=== PATIENT | female | born 1990 | race Caucasian/White ===

== ENCOUNTER 2018-02-23 17:50 | Emergency (ER) | payer OTHER ==
--- NOTE | 2018-02-23 20:02 | XRAY Report ---
Reason: cough Procedure Date: 02/23/2018 Accession Number: [id number] / [id number] Procedure: XR - Chest 2 View X-Ray CPT Code: 31356 FULL RESULT: EXAM: CHEST RADIOGRAPHY EXAM DATE: 02/23/2018 07:21 PM. CLINICAL HISTORY: Cough. COMPARISON: None available. TECHNIQUE: 2 views. FINDINGS: Heart size is normal. No consolidation, pleural effusion, or pneumothorax. IMPRESSION: Normal 2-view chest radiography. RADIA
[2018-02-23] MEDS ORDERED: IPRATROPIUM/ALBUTEROL 3 ML NEB INH STA (20:11)
[2018-02-23] MEDS ORDERED: BENZONATATE 100 MG CAPSULE PO STA (20:11)
[2018-02-23] MEDS ORDERED: DEXAMETHASONE 10 MG/ML VIAL PO STA (20:11)
[2018-02-23] MEDS ORDERED: CHERRY SYRUP 10 ML UDC PO ONE (20:19)
--- NOTE | 2018-02-23 21:06 | ED Physician Documentation ---
History of Present Illness - Stated complaint Stated Complaint: COUGH, FLEGM/SORE THROAT - Chief complaint Chief Complaint: Heent - Additonal information Additional information: 27-year-old female presents the emergency department with nasal congestion, cough and wheezing for the past several weeks. The patient has a history of asthma. No specific triggering factors. No fevers or chills or productive cough. The patient gets improvement with her albuterol. Symptoms are described as moderate. No other associated symptoms. Review of Systems Constitutional: denies: Fever, Chills Eyes: denies: Loss of vision Ears: denies: Ear pain Nose: denies: Congestion Throat: denies: Sore throat Cardiac: denies: Chest pain / pressure Respiratory: reports: Cough, Wheezing GI: denies: Constipation : denies: Dysuria Skin: denies: Rash Musculoskeletal: denies: Neck pain Immunocompromised: denies: Chemotherapy PD PAST MEDICAL HISTORY - Past Medical History Past Medical History: Yes Cardiovascular: Other Respiratory: Asthma Other Past Medical History: DVT - Past Surgical History Past Surgical History: Yes - Present Medications Home Medications: Ambulatory Orders Medication Instructions Recorded Confirmed Benzonatate [Tessalon Perle] 100 mg PO TID PRN #30 capsule 02/23/18 Pseudoephedrine HCl [Sudafed 12 120 mg PO BID PRN #30 tablet.er 02/23/18 Hour] - Allergies Allergies/Adverse Reactions: Allergies Allergy/AdvReac Type Severity Reaction Status Date / Time tramadol Allergy Rash Verified 02/23/18 17:56 - Social History Does the pt smoke?: No Smoking Status: Never smoker Does the pt drink ETOH?: No Does the pt have substance abuse?: No PD ED PE NORMAL - General General: Alert and oriented X 3, No acute distress - HEENT HEENT: Atraumatic, PERRL, EOMI, Ears normal - Neck Neck: Supple, no meningeal sign - Cardiac Cardiac: RRR, Strong equal pulses - Respiratory Respiratory: No respiratory distress, Other (Bronchospasms with coughing) - Derm Derm: Normal color - Extremities Extremities: No deformity, No edema - Neuro Neuro: Alert and oriented X 3, Normal speech - Psych Psych: Normal mood Results - Vitals Vitals: Vital Signs - 24 hr 02/23/18 17:55 Temperature 36.6 C Heart Rate 111 H Respiratory 18 Rate Blood Pressure 123/79 O2 Saturation 97 Oxygen O2 Source Room air - Rads (name of study) CXR Radiology: Final report received, See rad report PD MEDICAL DECISION MAKING - ED course ED course: On reevaluation the patient appears much improved. There is no findings that would suggest a bacterial etiology and the patient appears appropriate for outpatient management. I discussed warning signs and recommended returning to the emergency department immediately for any worsening or any concerns. Departure - Departure Disposition: 01 Home, Self Care Clinical Impression: Bronchitis Condition: Good Instructions: ED Bronchitis Asthmatic Follow-Up: MAGGIE HOLLIS [Primary Care Provider] - Within 1 week Prescriptions: Benzonatate [Tessalon Perle] 100 mg PO TID PRN #30 capsule PRN Reason: Cough Pseudoephedrine HCl [Sudafed 12 Hour] 120 mg PO BID PRN #30 tablet.er PRN Reason: Cold Symptons Comments: Please return to the emergency department for worsening symptoms or any concerns
[2018-02-23 21:11] VITALS: BP 125/68
== END 2018-02-23 21:11 | disposition home or self-care (01) ==
LOC: ED 17:50
DX: J40 Bronchitis, not specified as acute or chronic (principal)
CPT/HCPCS: 71046; 94640; 99283; A9270

== ENCOUNTER 2018-04-28 12:58 | Day surgery (SDC) | payer OTHER ==
[2018-04-28] MEDS ORDERED: LACTATED RINGERS 1,000 ML IV ONE ×2 (13:15→16:11)
[2018-04-28 13:18] LABS: HCG UR QUAL NEGATIVE
--- NOTE | 2018-04-28 13:43 | ANESTHESIA ---
Pre-Anesthesia VS, & Labs - Diagnosis desires sterilization - Procedure laparoscopic salphingectomy, bilateral Vital Signs: Temp Pulse Resp BP Pulse Ox 37 C 98 16 122/74 96 04/28/18 13:37 04/28/18 13:37 04/28/18 13:37 04/28/18 13:37 04/28/18 13:37 Height 5 ft 5 in Weight (kg) 77 kg Body Mass Index 29.1 - NPO >8 hours - Is Patient ?: No (negative HCG) Home Medications and Allergies Home Medications: Ambulatory Orders No Known Home Medications 04/07/18 No Known Home Medications 04/07/18 Allergies/Adverse Reactions: Allergies Allergy/AdvReac Type Severity Reaction Status Date / Time tramadol Allergy Rash Verified 04/07/18 09:01 Anes History & Medical History - Anesthetic History Anesthesia Complications: reports: No previous complications - Medical History Cardiovascular: reports: Deep vein thrombosis Pulmonary: reports: Asthma (occasional inhaler use) Gastrointestinal: reports: None Urinary: reports: Other Musculoskeletal: reports: None Endocrine/Autoimmune: reports: None Skin: reports: None Smoking Status: Former smoker (smokeless only, quit) - Surgical History Cardiothoracic: Other Exam General: Alert Dental: Poor dentition (right front incisor missing) Mouth Opening: Greater than 4 Fingerbreadths Mallampati classification: II Thyromental Distance: greater than 6 cm Respiratory: Lungs clear Cardiovascular: Regular rate Mental/Cognitive Status: Alert/Oriented X3 Plan Anesthesia Type: General Consent for Procedure(s) Verified and Reviewed: Yes Code Status: Attempt Resuscitation ASA classification: 2-Mild systemic disease Is this case an emergency?: No
[2018-04-28] MEDS ORDERED: BUPIVACAINE 0.5%-EPI 1:200000 PF 30 ML VIAL ONE (14:57)
[2018-04-28] MEDS ORDERED: BUPIVACAINE 0.5%-EPI 1:200000 PF 30 ML VIAL SUBQ ONE ×2 (15:51)
[2018-04-28] MEDS ORDERED: HYDROcod/ACETAM 10 MG/325 MG TABLET PO PRN (16:28)
--- NOTE | 2018-04-28 16:31 | OPERATIVE REPORT ---
Operative Report - General Procedure Date: 04/28/18 Planned Procedure: Laparoscopic bilateral salpingectomy Pre-Op Diagnosis: Undesired fertility Procedure Performed: Laparoscopic bilateral salpingectomy Fulguration of endometriosis Post Op Diagnosis: Same as above - Procedure Note Primary Surgeon: Rosita Secondary Surgeon: Chavo Anesthesia Provider: Anival Anesthesia Technique: General ET tube Pathology: Portions of both fallopian tubes Estimated Blood Loss (mL): 25 - Other Other Information/Narrative: Examination under anesthesia: The uterus was of normal size shape and consistency and retroverted. There were no adnexal masses. Operative findings: The uterus was retroverted and of normal size and shape. Both tubes and ovaries appeared normal. There were endometriotic implants of the left uterosacral ligament, the lower segment of the uterus posteriorly in the midline, both ovarian fossae. The appendix, and the liver edge and gallbladder appeared normal. The omentum was adherent to the anterior abdominal wall in the right lower quadrant lateral to the right lower quadrant trocar site. Procedure: The patient was taken to the operating room, where general endotracheal anesthesia was administered without difficulty. She was then positioned in the low dorsal lithotomy position with her lower extremities in [place] stirrups. Vagina, perineum, and abdomen were then prepped and draped in a sterile fashion. Procedure Time-Out was then performed. A sterile bivalve speculum was then inserted into the vagina. A tenaculum was placed at the anterior lip of the cervix, and a HUMI uterine manipulator was gently advanced and the balloon inflated. The tenaculum and speculum were then removed from the vagina. Attention was then turned to the laparoscopy. 0.5% Marcaine was injected in fraumbilically, then a 7-mm horizontal skin incision made. A Verrees needle was then inserted through the anterior layers of the abdominal wall with saline drop test suggesting intraperitoneal placement. Carbon dioxide gas insufflation was then performed with appropriate opening pressures noted. Once 2 L of gas was instilled, a 0-degree, 5 mm laparoscope was inserted into a 5 mm trocar and pass ed through the anterior layers of the abdominal wall using Optiview technique. The abdomen was visualized, then 2 additional ports placed at the right and left lower quadrants, first instilling local anesthetic, then placing 5 mm ports. The patient was placed into Trendelenberg and bowel swept out of the cul-de-sac. The right, distal fallopian tube was then grasped and pulled anteriorly and s uperiorly. The tubo-ovarian ligament was then crossclamped, cauterized, and cut using the PlasmaKinetic, then the mesosalpinx was crossclamped, cauterized, and cut, completely the right fallopian tube from the uterus at the cornual region. The right fallopian tube was then removed from the abdomen. The left distal fallopian tube including the paratubal cyst was then grasped and pulled anteriorly and superiorly. The tubo-ovarian pedicle was then crossclamped, cauterized, and cut, the distal left fallopian tube from the left ovary. The mesosalpinx was then serially cauterized and cut until the cornual region was reached, then the cornual fallopian tube was crossclamped cauterized and cut. The surgical sites appeared hemostatic. The left fallopian tube was removed from the abdomen. Endometriotic implants in the posterior cul-de-sac and right and left ovarian fossae were fulgurated. At this point the laparoscopy was deemed complete, and all trochars were removed from the abdomen. The carbon dioxide gas was then allowed to escape. The incisions were then closed with 4-0 Monocryl in a subcuticular fashion followed by Dermabond skin adhesive. The tenaculum was then removed from the posterior lip of the cervix. The sterile bivalve speculum was then reinserted to ensure that the tenaculum sites were hemostatic. No bleeding was noted, and the speculum was then removed. At this point the procedure was deemed complete. The patient was then replaced supine, awakened, extubated, and transferred to the PACU in stable condition.
[2018-04-28] MEDS ORDERED: ONDANSETRON 4 MG/2 ML VIAL ONE (16:33)
[2018-04-28] MEDS ORDERED: HYDROmorphone 0.5 MG/0.5 ML SYRINGE ONE (16:38)
[2018-04-28 17:40] VITALS: BP 118/76
== END 2018-04-28 12:59 | disposition home or self-care (01) ==
LOC: SDS 12:58
PROVIDERS: ATTEND Obstetrics & Gynecology
PROC: 0UT74ZZ Resection of Bilateral Fallopian Tubes, Percutaneous Endoscopic Approach (ICD-10-PCS; principal; 2018-04-28 14:00)
DX: Z30.2 Encounter for sterilization (principal); J45.909 Unspecified asthma, uncomplicated; Z86.718 Personal history of other venous thrombosis and embolism; Z87.891 Personal history of nicotine dependence
CPT/HCPCS: 58661; 81025; J1170; J7120

== ENCOUNTER 2018-09-25 13:27 | Emergency (ER) | payer OTHER ==
[2018-09-25 13:33] VITALS: BP 137/100
[2018-09-25] MEDS ORDERED: HYDROcod/ACETAM 5/325 MG TABLET PO STA (13:39)
--- NOTE | 2018-09-25 13:42 | ED Physician Documentation ---
History of Present Illness - Stated complaint Stated Complaint: TAILBONE PX - Chief complaint Chief Complaint: General - History obtained from History obtained from: Patient - History of Present Illness Timing: Other (Fell down a few stairs at home few days ago landing on her tailbone. Also hurt her right second toe. No other injuries. Pain is moderate despite taking ibuprofen. No possibility of .) Review of Systems Cardiac: denies: Chest pain / pressure, Palpitations Respiratory: denies: Dyspnea, Cough GI: denies: Abdominal Pain, Vomiting, Diarrhea PD PAST MEDICAL HISTORY - Past Medical History Cardiovascular: Deep vein thrombosis Respiratory: Asthma (occasional inhaler use) Endocrine/Autoimmune: None GI: None : Other HEENT: None Psych: Anxiety Musculoskeletal: None Derm: None - Past Surgical History Past Surgical History: Yes Cardiovascular: Other - Present Medications Home Medications: Ambulatory Orders Medication Instructions Recorded Confirmed Hydrocodone/Acetaminophen 1 - 2 each PO Q6H PRN #14 tablet 09/25/18 [Hydrocodon-Acetaminophen 5-325] - Allergies Allergies/Adverse Reactions: Allergies Allergy/AdvReac Type Severity Reaction Status Date / Time tramadol Allergy Rash Verified 04/07/18 09:01 - Social History Does the pt smoke?: No Smoking Status: Former smoker (smokeless only, quit) Does the pt drink ETOH?: No Does the pt have substance abuse?: No PD ED PE NORMAL - Vitals Vital signs reviewed: Yes - General General: Alert and oriented X 3, No acute distress - Neck Neck: Supple, no meningeal sign, No bony TTP - Back Back: Other (Tender over the low sacrum/coccyx, no tenderness or deformity at the SI joints. 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, Normal speech - Psych Psych: Normal mood, Normal affect Results - Vitals Vitals: Vital Signs - 24 hr 09/25/18 13:31 Temperature 36.4 C L Heart Rate 79 Respiratory 18 Rate Blood Pressure 137/100 H O2 Saturation 99 Oxygen O2 Source Room air - Rads (name of study) XR R 2nd toe and sacrum Radiology: EMP read contemporaneously (Lower sacral nondisplaced fracture and distal phalanx dorsal chip fracture of the second toe.) Departure - Departure Disposition: Home, Self Care Clinical Impression: Sacral fracture Qualifiers: Encounter type: initial encounter Zone of sacrum fracture: unspecified portion of sacrum Fracture type: closed Qualified Code(s): S32.10XA - Unspecified fracture of sacrum, initial encounter for closed fracture Toe fracture, right Qualifiers: Encounter type: initial encounter Toe: lesser toe Fracture type: closed Phalanx: distal Fracture alignment: nondisplaced Qualified Code(s): S92.534A - Nondisplaced fracture of distal phalanx of right lesser toe(s), initial encounter for closed fracture Condition: Good Record reviewed to determine appropriate education?: Yes Health Concerns: toe/back injury Plan of Treatment: pain meds, rest, donut pillow Care Goals: pain control Assessment: as above Instructions: ED Fx Coccyx, ED Fx Toe Closed Prescriptions: Hydrocodone/Acetaminophen [Hydrocodon-Acetaminophen 5-325] 1 - 2 each PO Q6H PRN #14 tablet PRN Reason: pain Comments: Camilo tape the toes as shown as needed. Donut pillow which he can get [id number]. Return if worse. Do not drink or drive while taking narcotic pain medication. Note that many narcotic pain relievers also contain Tylenol/acetaminophen. Please ensure that your total dose of acetaminophen from all sources does not exceed 3 g (3000 mg) per day. You may get constipated while on this medication. Take a stool softener such as Colace twice a day while you are on it. Also add an [id number] laxative such as senna or MiraLAX on any day that you do not have a bowel movement. If you received a narcotic pain medication or sedative while in the emergency department, do not drive for the next 24 hours.
--- NOTE | 2018-09-25 15:00 | XRAY Report ---
Reason: fall, back pain Procedure Date: 09/25/2018 Accession Number: [id number] / [id number] Procedure: XR - Sacrum/Coccyx CPT Code: FULL RESULT: EXAM: SACRUM AND COCCYX RADIOGRAPHY EXAM DATE: 09/25/2018 02:10 PM. HISTORY: Fall, back pain. COMPARISONS: None. TECHNIQUE: 2 views. FINDINGS: Alignment: Normal alignment. No dislocation. Bones: Oblique lucency on the lateral view is seen in the lower sacrum by the sacrococcygeal junction. No displacement. Joints: Normal. The sacroiliac joints and visualized hips are within normal limits. Soft Tissues: Vascular stent is noted. IMPRESSION: 1. Oblique lucency in the lower sacrum seen best on the lateral view may represent a nondisplaced fracture. No displacement or angulation. RAD[facility]
--- NOTE | 2018-09-25 15:18 | XRAY Report ---
Reason: fall toe pain Procedure Date: 09/25/2018 Accession Number: [id number] / [id number] Procedure: XR - Toe(s) RT CPT Code: FULL RESULT: EXAM: RIGHT SECOND TOE RADIOGRAPHY EXAM DATE: 09/25/2018 02:00 PM. CLINICAL HISTORY: Fall toe pain. COMPARISON: None. TECHNIQUE: 3 views. FINDINGS: Bones: On the lateral image, there is a lucency seen through the dorsal distal phalanx which could represent a nondisplaced fracture line versus other overlapping structures. Joints: Normal. No subluxations. Soft Tissues: No foreign body. IMPRESSION: 1. Possible hairline nondisplaced fracture of the dorsal distal phalanx at the DIP joint on the lateral image only. Not clearly seen on other images. Artifact is not excluded. RAD[facility]
== END 2018-09-25 15:32 | disposition home or self-care (01) ==
LOC: ED 13:27
DX: S32.10XA Unspecified fracture of sacrum, initial encounter for closed fracture (principal); S92.534A Nondisplaced fracture of distal phalanx of right lesser toe(s), initial encounter for closed fracture; W10.9XXA Fall (on) (from) unspecified stairs and steps, initial encounter; Y92.009 Unspecified place in unspecified non-institutional (private) residence as the place of occurrence of the external cause; Z86.718 Personal history of other venous thrombosis and embolism; Z87.891 Personal history of nicotine dependence
CPT/HCPCS: 72220; 73660; 99283; 99284; A9270

== ENCOUNTER 2021-04-03 13:39 | Emergency (ER) | payer OTHER ==
[2021-04-03 14:25] LABS: ALBUMIN 4.4 g/dL (3.2-5.5); ALBUMIN/GLOBULIN RATIO 1.1 (1.0-2.2); CREATININE 0.8 mg/dL (0.4-1.0); POTASSIUM 3.5 mmol/L (3.5-5.0); TOTAL PROTEIN 8.3 g/dL (6.7-8.2)
[2021-04-03 14:29] LABS: BASOPHILS # (AUTO) 0.1 10^3/uL (0.0-0.1); BASOPHILS % (AUTO) 0.5 %; EOSINOPHILS # (AUTO) 0.2 10^3/uL (0.0-0.7); EOSINOPHILS % (AUTO) 2.5 %; HGB - HEMOGLOBIN 13.1 g/dL (12.0-16.0); LYMPHOCYTES # (AUTO) 2.6 10^3/uL (1.5-3.5); MEAN CORPUSCULAR HEMOGLOBIN 28.5 pg (27.0-31.0); MEAN CORPUSCULAR VOLUME 89.3 fL (81.0-99.0); MEAN PLATELET VOLUME 10.5 fL (7.9-10.8); MONOCYTES % (AUTO) 10.9 %; NEUTROPHILS # (AUTO) 5.4 10^3/uL (1.5-6.6); NEUTROPHILS % (AUTO) 57.8 %; PLT - PLATELET COUNT 244 10^3/uL (130-450); RED BLOOD COUNT 4.59 10^6/uL (4.20-5.40); RED CELL DISTRIBUTION WIDTH 12.3 % (12.0-15.0); WHITE BLOOD COUNT 9.4 x10^3/uL (4.8-10.8)
[2021-04-03] MEDS ORDERED: SODIUM CHLORIDE 0.9% 1,000 ML IV STA (14:30)
--- NOTE | 2021-04-03 14:36 | ED Physician Documentation ---
History of Present Illness - Stated complaint Stated Complaint: LT LOWER BACK PX - Chief complaint Chief Complaint: Abd Pain - Additonal information Additional information: 30-year-old female presents emergency department for evaluation of 2 days left low back and flank pain. Pain is constant nonradiating. No fevers nausea or vomiting. No dysuria urgency or frequency. She does have a history of kidney stones however these have always been asymptomatic. She was previously taking Flomax but stopped taking it because it was making her nauseated. She stopped taking it about 3 days ago. She also reports a history of stenting in either her iliac artery or vein she is unsure. She had developed a blood clot after using OCP. She is not anticoagulated. Takes no prescribed medications otherwise. Review of Systems Constitutional: reports: Reviewed and negative Nose: reports: Reviewed and negative Throat: reports: Reviewed and negative Cardiac: reports: Reviewed and negative Respiratory: reports: Reviewed and negative GI: reports: Abdominal Pain. denies: Nausea, Vomiting : denies: Dysuria, Frequency, Hesitancy Skin: reports: Reviewed and negative Musculoskeletal: reports: Reviewed and negative PD PAST MEDICAL HISTORY - Past Medical History Cardiovascular: Deep vein thrombosis Respiratory: Asthma (occasional inhaler use) Endocrine/Autoimmune: None GI: None : Other HEENT: None Psych: Anxiety Musculoskeletal: None Derm: None - Past Surgical History Past Surgical History: Yes /RECRUITING MANAGER: Oophrectomy Cardiovascular: Other - Present Medications Home Medications: Ambulatory Orders Medication Instructions Recorded Confirmed Hydrocodone/Acetaminophen 1 - 2 each PO Q6H PRN #14 tablet 09/25/18 [Hydrocodon-Acetaminophen 5-325] Cefpodoxime Proxetil [Vantin] 100 mg PO Q12H #14 tablet 04/03/21 - Allergies Allergies/Adverse Reactions: Allergies Allergy/AdvReac Type Severity Reaction Status Date / Time tramadol Allergy Rash Verified 04/03/21 13:57 - Social History Does the pt smoke?: No Smoking Status: Former smoker (smokeless only, quit) Does the pt drink ETOH?: No Does the pt have substance abuse?: No PD ED PE NORMAL - General General: Alert and oriented X 3, No acute distress - Neck Neck: Supple, no meningeal sign, No adenopathy - Cardiac Cardiac: RRR, No murmur - Respiratory Respiratory: No respiratory distress, Clear bilaterally - Abdomen Abdomen: Normal bowel sounds, Soft. No: Non tender (Tenderness in the left CVA and left flank. No guarding or rebound. No right-sided abdominal tenderness elicited.) - Back Back: No: No CVA TTP (Left CVA) - Derm Derm: Warm and dry - Extremities Extremities: No deformity - Neuro Neuro: Alert and oriented X 3 Eye Opening: Spontaneous Motor: Obeys Commands Verbal: Oriented GCS Score: 15 - Psych Psych: Normal mood Results - Vitals Vitals: Vital Signs - 24 hr 04/03/21 04/03/21 13:51 14:59 Temperature 36.6 C 37.2 C Heart Rate 108 H 94 Respiratory 16 18 Rate Blood Pressure 113/71 115/66 O2 Saturation 100 100 Oxygen O2 Source Room air - Labs Labs: Laboratory Tests 04/03/21 04/03/21 04/03/21 14:04 14:04 14:09 WBC 9.4 RBC 4.59 Hgb 13.1 Hct 41.0 MCV 89.3 MCH 28.5 MCHC 32.0 RDW 12.3 Plt Count 244 MPV 10.5 Neut # (Auto) 5.4 Lymph # (Auto) 2.6 [place] # (Auto) 1.0 Eos # (Auto) 0.2 Baso # (Auto) 0.1 Absolute Nucleated RBC 0.00 Nucleated RBC % 0.0 Sodium Potassium Chloride Carbon Dioxide Anion Gap BUN Creatinine Estimated GFR (MDRD) Glucose Calcium Total Bilirubin AST ALT Alkaline Phosphatase Total Protein Albumin Globulin Albumin/Globulin Ratio Lipase Urine Color YELLOW Urine Clarity SL. CLOUDY Urine pH 6.0 Ur Specific [place] 1.020 Urine Protein TRACE Urine Glucose (UA) NEGATIVE Urine Ketones NEGATIVE Urine Occult Blood SMALL H Urine Nitrite POSITIVE H Urine Bilirubin NEGATIVE Urine Urobilinogen 0.2 (NORMAL) Ur Leukocyte Esterase SMALL H Urine RBC 11-25 H Urine WBC 11-25 H Urine WBC Clumps PRESENT Ur Squamous Epith Cells RARE Squamous Urine Bacteria Many H Ur Microscopic Review INDICATED Urine Culture Comments INDICATED Urine HCG, Qual NEGATIVE 04/03/21 14:09 WBC RBC Hgb Hct MCV MCH MCHC RDW Plt Count MPV Neut # (Auto) Lymph # (Auto) [place] # (Auto) Eos # (Auto) Baso # (Auto) Absolute Nucleated RBC Nucleated RBC % Sodium 138 Potassium 3.5 Chloride 101 Carbon Dioxide 27 Anion Gap 10.0 BUN 13 Creatinine 0.8 Estimated GFR (MDRD) 84 L Glucose 94 Calcium 9.0 Total Bilirubin 1.0 AST 21 ALT 33 Alkaline Phosphatase 68 Total Protein 8.3 H Albumin 4.4 Globulin 3.9 Albumin/Globulin Ratio 1.1 Lipase 45 Urine Color Urine Clarity Urine pH Ur Specific [place] Urine Protein Urine Glucose (UA) Urine Ketones Urine Occult Blood Urine Nitrite Urine Bilirubin Urine Urobilinogen Ur Leukocyte Esterase Urine RBC Urine WBC Urine WBC Clumps Ur Squamous Epith Cells Urine Bacteria Ur Microscopic Review Urine Culture Comments Urine HCG, Qual - Rads (name of study) CT abd Radiology: Final report received (Visualized renal or ureteral calculi. No obstruction. No acute intra-abdominal or pelvic process) PD MEDICAL DECISION MAKING - ED course Complexity details: reviewed results, re-evaluated patient ED course: 30-year-old female presents emergency department for evaluation of 2 days acute left low back pain with radiation to the flank. No fevers nausea or vomiting. She does endorse a history of renal colic in the past. Screening labs that showed no worrisome findings with the exception of a frankly infected urine. Patient was given a gram of ceftriaxone here in the emergency department. Given the history of previous renal colic a CT scan was completed to rule out infected stone. No acute process was identified and there were no findings of stones. Patient will be discharged with a prescription for Vantin twice daily for the next week. Clinically patient does not present as septic and has no findings to suggest a sending infection though there is some mild flank pain. Emergent return precautions were discussed for failure of symptoms to resolve. Departure - Departure Disposition: 01 Home, Self Care Clinical Impression: Acute cystitis Qualifiers: Hematuria presence: with hematuria Qualified Code(s): N30.01 - Acute cystitis with hematuria Condition: Stable Record reviewed to determine appropriate education?: Yes Instructions: ED UTI Cystitis Female Prescriptions: Cefpodoxime Proxetil [Vantin] 100 mg PO Q12H #14 tablet Comments: June you are seen in the emergency department today for left-sided low back and flank pain. Your screening labs were all essentially normal however you do have a urinary tract infection. Please fill the prescription for the Vantin which has been sent to the [facility]. The CT scan did not show findings of infection around your kidney nor did it find any infected or retained kidney stones. With the antibiotics I would expect reduced pain in your low back over the next 24 to 48 hours. In general I recommend that you take Tylenol or ibuprofen [id number] for discomfort. If despite the antibiotics your symptoms are not improving then please return immediately to the ER for a second evaluation.
[2021-04-03] MEDS ORDERED: iohexoL-300 100 ML VIAL ONE (14:45)
[2021-04-03 14:49] LABS: BILIRUBIN,URINE NEGATIVE (NEGATIVE); GLUCOSE, URINE (UA) NEGATIVE (NEGATIVE); KETONES,URINE (UA) NEGATIVE (NEGATIVE); LEUKOCYTE ESTERASE, URINE SMALL (NEGATIVE); NITRITE,URINE POSITIVE (NEGATIVE); OCCULT BLOOD,URINE SMALL (NEGATIVE); PROTEIN,URINE TRACE mg/dL (NEGATIVE); UROBILINOGEN,URINE 0.2 (NORMAL) E.U./dL (NORMAL)
[2021-04-03 15:07] LABS: BACTERIA,URINE Many /HPF (None Seen); CLARITY,URINE SL. CLOUDY (CLEAR); HCG UR QUAL NEGATIVE; SQUAMOUS EPITHELIAL CELL,UR RARE Squamous (<= Few); WBC CLUMPS,URINE PRESENT
[2021-04-03] MEDS ORDERED: cefTRIAXone 1 GM VIAL IVP STA (15:18)
--- NOTE | 2021-04-03 15:55 | CT Report ---
PROCEDURE: Abdomen/Pelvis W INDICATIONS: left flank pain; ? renal ureteral colic CONTRAST: IV CONTRAST: Isovue 300 ml: 100 PO CONTRAST: *NO PO CONTRAST TECHNIQUE: After the administration of IV contrast, 5 mm thick sections acquired from the diaphragms to the symp hysis. 5 mm thick coronal and sagittal reformats were acquired. For radiation dose reduction, the f ollowing was used: automated exposure control, adjustment of mA and/or kV according to patient size. COMPARISON: None. FINDINGS: Image quality: Excellent. ABDOMEN: Lung bases: Lung bases are clear. Heart size is normal. Solid organs: Liver and spleen are normal in size and enhancement. Hepatic steatosis is present. Gal lbladder is unremarkable Biliary system is non dilated. Pancreas enhances normally. No adrenal nod ules. Kidneys demonstrate normal size and enhancement, without hydronephrosis. Peritoneum and bowel: Bowel loops demonstrate normal wall thickness and caliber. No free fluid or a ir. Appendix is normal. Nodes and vessels: No retroperitoneal or mesenteric adenopathy by size criteria. Aorta and inferior vena cava are normal in size. Left common iliac stent is present, patent. Miscellaneous: No ventral hernias. PELVIS: Genitourinary: Bladder wall thickness is normal. Miscellaneous: No inguinal hernias or adenopathy. Bones: No suspicious bony lesions. No vertebral body compression fractures. IMPRESSION: 1. No visualized renal or ureteral calculi. No obstruction. 2. No acute intra-abdominal or pelvic process. Reviewed by: Kellen Dumont MD on 04/03/2021 3:54 PM PST Approved by: Kellen Dumont MD on 04/03/2021 3:54 PM PST Station ID: [id number]
[2021-04-03] MEDS ORDERED: HYDROcod/ACETAM 5/325 MG TABLET PO STA (16:13)
[2021-04-03 16:19] VITALS: BP 114/76
[2021-04-03] MEDS ORDERED: iohexoL-300 100 ML VIAL IVP ONE (20:16)
== END 2021-04-03 17:17 | disposition home or self-care (01) ==
LOC: ED 13:39
DX: N30.01 Acute cystitis with hematuria (principal); Z86.718 Personal history of other venous thrombosis and embolism; Z87.891 Personal history of nicotine dependence
CPT/HCPCS: 36415; 74177; 80053; 81001; 81025; 83690; 85025; 87086; 87181; 96374; 99283; 99284; A9270; Q9967; 81003

== ENCOUNTER 2021-09-05 08:55 | Outpatient (CLI) | payer OTHER ==
[2021-09-05 09:17] LABS: HCT - HEMATOCRIT 41.8 % (37.0-47.0); HGB - HEMOGLOBIN 13.3 g/dL (12.0-16.0); MEAN CORPUSCULAR HEMOGLOBIN 28.6 pg (27.0-31.0); MEAN CORPUSCULAR HGB CONC 31.8 g/dL (32.0-36.0); MEAN CORPUSCULAR VOLUME 89.9 fL (81.0-99.0); MEAN PLATELET VOLUME 10.4 fL (7.9-10.8); RED BLOOD COUNT 4.65 10^6/uL (4.20-5.40); WHITE BLOOD COUNT 5.8 x10^3/uL (4.8-10.8)
== END 2021-09-05 08:56 | disposition home or self-care (01) ==
LOC: LAB 08:55
PROVIDERS: ATTEND Obstetrics & Gynecology
DX: Z01.812 Encounter for preprocedural laboratory examination (principal); U07.1 COVID-19
CPT/HCPCS: 36415; 85025; 85027; 86850; 86900; 86901